=== PATIENT | male | born 1930 | race Caucasian/White ===

== ENCOUNTER → 2017-11-23 | Outpatient (CLI) | payer OTHER ==
[~2017-11-23] MED LIST: NONE PER PT
[2017-11-23 11:13] LABS: BASOPHILS # (AUTO) 0.06 x10^3/uL (0-0.1); BASOPHILS % (AUTO) 1 % (0-1); EOSINOPHILS # (AUTO) 0.12 x10^3/uL (0-0.4); EOSINOPHILS % (AUTO) 2 % (1-7); LYMPHOCYTES % (AUTO) 17 % (22-44); MD NO; MEAN CORPUSCULAR HEMOGLOBIN 32.1 pg (27.5-34.5); MEAN CORPUSCULAR HGB CONC 33.5 g/dL (33.2-36.2); MEAN CORPUSCULAR VOLUME 95.8 fL (81-97); MEAN PLATELET VOLUME 7.1 fL (7.4-10.4); MONOCYTES % (AUTO) 10 % (2-9); NEUTROPHILS % (AUTO) 70 % (42-75); PLATELET COUNT 283 x10^3/uL (130-400); RED BLOOD COUNT 4.45 x10^6/uL (4.38-5.82); RED CELL DISTRIBUTION WIDTH 13.6 % (9.4-14.8)
[2017-11-23 11:13] LABS: CULTURE INDICATED? NO; MICROSCOPIC NOT IND
== END | disposition home or self-care (01) ==
LOC: STAR 09:49
PROVIDERS: ATTEND Orthopaedic Surgery
DX: Z01.818 Encounter for other preprocedural examination (principal); M17.11 Unilateral primary osteoarthritis, right knee
CPT/HCPCS: 36415; 81003; 85025; 86703; 87081; 87147; 87899; G0435

== ENCOUNTER 2017-11-29 09:25 | Inpatient (IN) | payer OTHER ==
[2017-11-23 10:33] VITALS: BP 190/83
[~2017-11-29] VITALS: Ht 190.5 cm; Wt 96.5 kg
[2017-11-29] MEDS ORDERED: MULT-658 PO (09:55)
[2017-11-29] MEDS ORDERED: VITAMIN D3 PO (09:55)
[2017-11-29] MEDS ORDERED: LIDOCAINE 1%, 2ML SQ PRN (10:00)
[2017-11-29] MEDS ORDERED: VANCOMYCIN PMX 1GM/200ML 200 ML IV ONE (10:00)
[2017-11-29] MEDS ORDERED: LIDOCAINE 1%, 2ML ONE (10:03)
[2017-11-29] MEDS: LACTATED RINGERS 1,000 ML IV SCH ×2 (10:18→17:52)
[2017-11-29] MEDS ORDERED: FENTANYL PF 250 MCG/5ML ONE (10:34)
[2017-11-29] MEDS ORDERED: ROPIvacaine/PF 0.2%, 20 ML ONE ×2 (10:35→11:24)
[2017-11-29] MEDS ORDERED: PROPOFOL 10 MG/ML, 20ML ONE (10:36)
[2017-11-29] MEDS ORDERED: CEFAZOLIN 1,000 MG ONE ×2 (10:37)
[2017-11-29] MEDS ORDERED: SODIUM CHLORIDE 0.9% PF 10ML ONE (10:37)
[2017-11-29] MEDS ORDERED: NEOSTIGMINE 1 MG/ML, 10ML ONE (10:38)
[2017-11-29] MEDS ORDERED: GLYCOPYRROLATE 0.4 MG/2 ML, 2ML ONE (10:38)
[2017-11-29] MEDS ORDERED: ROCURONIUM 10 MG/ML,10ML ONE (10:38)
[2017-11-29] MEDS ORDERED: SODIUM CHLORIDE 0.9% 100 ML ONE (11:24)
[2017-11-29] MEDS ORDERED: morphine SULFATE/PF 1 MG/ML, 10ML ONE (11:24)
[2017-11-29] MEDS ORDERED: TRANEXAMIC ACID 100 MG/ML, 10ML ONE (11:24)
[2017-11-29] MEDS ORDERED: EPINEPHRINE 1 MG/ML, 1ML ONE (11:24)
[2017-11-29] MEDS ORDERED: KETOROLAC 60 MG/2 ML ONE (11:24)
[2017-11-29] MEDS ORDERED: BACITRACIN 50,000 UNIT ONE (11:24)
[2017-11-29] MEDS ORDERED: ONDANSETRON 2MG/ML, 2ML IVPush PRN ×2 (12:30→13:00)
[2017-11-29] MEDS ORDERED: hydrALAzine 20 MG/ML, 1ML IV PRN (12:30)
[2017-11-29] MEDS ORDERED: MEPERIDINE/PF 25MG/0.5ML IVPush PRN (12:30)
[2017-11-29] MEDS ORDERED: ACETAMINOPHEN 325 MG TABLET PO PRN ×2 (12:30→13:00)
[2017-11-29] MEDS ORDERED: LABETALOL 5MG/ML, 20ML IV PRN (12:30)
[2017-11-29] MEDS ORDERED: PROMETHAZINE 12.5 MG SUPP PR PRN (12:30)
[2017-11-29] MEDS ORDERED: LORazepam 2 MG/ML, 1ML IVPush PRN (13:00)
[2017-11-29] MEDS ORDERED: morphine SULFATE 10 MG/ML, 1ML IVPush PRN (13:00)
[2017-11-29] MEDS ORDERED: DIPHENHYDRAMINE 25 MG CAPSULE PO PRN (13:00)
[2017-11-29] MEDS ORDERED: ZOLPIDEM 5MG TABLET PO PRN (13:00)
[2017-11-29] MEDS ORDERED: FENTANYL PF 100 MCG/2ML ONE ×2 (14:47→15:24)
[2017-11-29] MEDS ORDERED: HYDROmorphone 2 MG/ML, 1ML ONE (15:24)
[2017-11-29] MEDS ORDERED: ACETAMINOPHEN 650 MG/20.3 ML UDC ONE (15:24)
[2017-11-29] MEDS ORDERED: OXYcodone 5 MG/5 ML ORAL.SOL UDC ONE (15:25)
[2017-11-29] MEDS: FENTANYL PF 100 MCG/2ML IV PRN ×2 (15:26→15:40)
[2017-11-29] MEDS: OXYcodone 5 MG/5 ML ORAL.SOL UDC PO PRN (15:30)
[2017-11-29] MEDS: HYDROmorphone 1 MG/ML, 1ML IV PRN ×5 (15:30→16:10)
[2017-11-29] MEDS ORDERED: METOPROLOL 1 MG/ML, 5ML ONE (16:17)
[2017-11-29] MEDS: METOPROLOL 1 MG/ML, 5ML IV PRN ×3 (16:23→16:49)
[2017-11-29] MEDS ORDERED: AMIODARONE 150 MG in DEXTROSE 5% 100 ML IV ONE (17:00)
[2017-11-29] MEDS ORDERED: AMIODARONE 900 MG in DEXTROSE 5% 482 ML IV PRN (17:00)
[2017-11-29] MEDS ORDERED: METOPROLOL 1 MG/ML, 5ML IVPush ONE (17:00)
[2017-11-29] MEDS ORDERED: DILTIAZEM 5 MG/ML, 5ML IVPush PRN (17:30)
[2017-11-29] MEDS ORDERED: FILTER 0.22 MICRON IV PRN (17:30)
[2017-11-29] MEDS: D5%-0.45% NACL 1,000 ML IV SCH ×3 (17:44→22:43)
[2017-11-29 17:56] VITALS: BP 132/82
[2017-11-29] MEDS: METOPROLOL TARTRATE 25 MG TABLET PO SCH (18:13)
[2017-11-29 18:51] LABS: ANION GAP 9 mmol/L (5-15); CALCIUM 8.7 mg/dL (8.5-10.1); CHLORIDE 108 mmol/L (98-107)
[2017-11-29 19:06] LABS: CHOL/HDL RATIO 3.2; CHOLESTEROL, TOTAL 162 mg/dL (140-239); CREATININE 0.94 mg/dL (0.7-1.3); FREE T4 (FREE THYROXINE) 1.19 ng/dL (0.76-1.46); HDL CHOL % 31 % (26-37); HDL CHOLESTEROL (DIRECT) 51 mg/dL (40-60); LDL CHOLESTEROL,CALCULATED 98 mg/dL (54-169); LDL/HDL RATIO 1.9 (0.5-3.0); TRIGLYCERIDES 67 mg/dL (50-200); TROPONIN I < 0.015 ng/mL (0.000-0.045); VLDL CHOLESTEROL 13 mg/dL (0-25)
[2017-11-29] MEDS ORDERED: TRANEXAMIC ACID 1,000 MG in SODIUM CHLORIDE 0.9% 100 ML IV ONE (19:30)
[2017-11-29 21:55] VITALS: BP 137/74
[2017-11-29] MEDS: OXYcodone/APAP 7.5/325MG TABLET PO PRN (21:57)
[2017-11-29] MEDS: CEFAZOLIN PMX 1GM/50ML 50 ML IVPB SCH (21:57)
[2017-11-29] MEDS: SODIUM CHLORIDE FLUSH 10ML SYR IVF SCH (21:58)
[2017-11-29 23:26] LABS: TROPONIN I < 0.015 ng/mL (0.000-0.045)
[2017-11-30 00:20] VITALS: BP 132/67
[2017-11-30] MEDS: METOPROLOL TARTRATE 25 MG TABLET PO SCH ×3 (01:13→13:39)
[2017-11-30] MEDS: OXYcodone/APAP 7.5/325MG TABLET PO PRN ×5 (02:04→22:37)
[2017-11-30] MEDS: D5%-0.45% NACL 1,000 ML IV SCH ×5 (03:28→23:43)
[2017-11-30 05:48] LABS: TROPONIN I < 0.015 ng/mL (0.000-0.045)
[2017-11-30] MEDS ORDERED: OXYcodone IR 5MG TABLET ONE (05:50)
[2017-11-30] MEDS: CEFAZOLIN PMX 1GM/50ML 50 ML IVPB SCH ×2 (05:56→14:51)
[2017-11-30] MEDS: OXYcodone 5 MG/5 ML ORAL.SOL UDC PO PRN (05:56)
[2017-11-30 06:56] VITALS: BP 110/64
[2017-11-30] MEDS ORDERED: ASPIRIN 325 MG TABLET EC PO SCH ×2 (09:00→17:00)
[2017-11-30] MEDS: SODIUM CHLORIDE FLUSH 10ML SYR IVF SCH ×2 (09:12→21:51)
[2017-11-30] MEDS: MULTIVITAMIN 1 TABLET PO SCH (09:12)
[2017-11-30] MEDS: CHOLECALCIFEROL 400 UNITS TABLET PO SCH (09:12)
[2017-11-30] MEDS ORDERED: VANCOMYCIN PMX 1GM/200ML 200 ML IVPB ONE (13:00)
[2017-11-30 13:20] VITALS: BP 112/58
[2017-11-30 13:35] VITALS: BP 105/55
[2017-11-30 19:09] VITALS: BP 109/57
[2017-11-30 21:47] VITALS: BP 111/57
[2017-11-30] MEDS: METOPROLOL TARTRATE 50 MG TABLET PO SCH (21:51)
[2017-11-30] MEDS: DOCUSATE 100 MG CAPSULE PO SCH (21:51)
[2017-11-30] MEDS: ASPIRIN 325 MG TABLET EC PO SCH (21:51)
[2017-12-01 01:23] VITALS: BP 95/57
[2017-12-01] MEDS: OXYcodone/APAP 7.5/325MG TABLET PO PRN ×3 (02:12→12:01)
[2017-12-01] MEDS: D5%-0.45% NACL 1,000 ML IV SCH ×2 (04:43→11:45)
[2017-12-01 08:47] VITALS: BP 115/63
[2017-12-01] MEDS: SODIUM CHLORIDE FLUSH 10ML SYR IVF SCH (09:39)
[2017-12-01] MEDS: DOCUSATE 100 MG CAPSULE PO SCH (09:39)
[2017-12-01] MEDS: ASPIRIN 325 MG TABLET EC PO SCH (09:39)
[2017-12-01] MEDS: CHOLECALCIFEROL 400 UNITS TABLET PO SCH (09:39)
[2017-12-01] MEDS: MULTIVITAMIN 1 TABLET PO SCH (09:39)
[2017-12-01] MEDS: METOPROLOL TARTRATE 50 MG TABLET PO SCH (09:39)
[2017-12-01 14:31] VITALS: BP 116/68
[2017-12-01] MEDS ORDERED: METO50TA82 PO (15:53)
[2017-12-01] MEDS ORDERED: ASPI-650 PO (15:53)
== END 2017-12-01 16:00 | disposition home or self-care (01) | DRG 470 ==
LOC: OUT 09:25 → ORIP 12:43 → 5SO 17:40 → DCLOUNGE 12-01 15:30
PROVIDERS: ADMIT Orthopaedic Surgery; ATTEND Orthopaedic Surgery
PROC: 0SRC0J9 Replacement of Right Knee Joint with Synthetic Substitute, Cemented, Open Approach (ICD-10-PCS; principal; 2017-11-29 11:30)
DX: M17.11 Unilateral primary osteoarthritis, right knee (principal); D68.69 Other thrombophilia; I48.0 Paroxysmal atrial fibrillation; M65.9 Synovitis and tenosynovitis, unspecified; I10 Essential (primary) hypertension; Z87.891 Personal history of nicotine dependence
CPT/HCPCS: 36415; 71045; 80048; 80061; 84439; 84443; 84484; 85014; 85018; 88304; 88305; 88311; 93005; 93306; 93880; C1713; J0171; J0690; J1170; J1885; J2274; J2405; J2704; J2710; J2795; J3010; J3370; J3490; C1776; J0282; J7060; J7120